=== PATIENT | female | born 1980 | race Caucasian/White ===

== ENCOUNTER 2019-02-05 16:17 | Inpatient (IN) ==
[2019-02-05] MEDS ORDERED: cefTRIAXone SODIUM 1,000 MG/50 ML BAG IV STA (16:36)
[2019-02-05] MEDS ORDERED: SODIUM CHLORIDE 0.9% 1000ML 1,000 ML IV ONE (16:38)
[2019-02-05] MEDS ORDERED: KETOROLAC TROMETHAMINE 15 MG/ML VIAL IV ONE (16:38)
[2019-02-05 17:05] LABS: Basophils # (auto) 0.01 K/uL (0-0.2); Basophils % (auto) 0.1 %; Eosinophils # (auto) 0.13 K/uL (0-0.5); Eosinophils % (auto) 0.9 %; Hematocrit (blood only) 40.3 % (37-47); Hemoglobin 13.9 g/dL (12.0-16.0); Immature Granulocytes # (auto) 0.06 K/uL (0.00-0.02); Immature Granulocytes % (auto) 0.4 %; Lymphocytes # (auto) 1.66 K/uL (1.2-3.4); Mean Corpuscular Hgb Conc 34.5 g/dL (32-36); Mean Corpuscular Volume 92.6 fL (80-100); Monocytes # (auto) 0.83 K/uL (0.11-0.59); Monocytes % (auto) 5.5 %; Neutrophils # (auto) 12.43 K/uL (1.4-6.5); Neutrophils % (auto) 82.1 %; Platelet Count 325 K/uL (130-400); RDW Coefficient of Variation 12.1 % (11.5-14.5); RDW Standard Deviation 41.1 fL (36.4-46.3); Red Blood Count 4.35 M/uL (4.2-5.4); White Blood Count 15.12 K/uL (4.8-10.8)
--- NOTE | 2019-02-05 17:08 | XRay Report ---
XR chest 1V portable CLINICAL HISTORY: Sepsis COMPARISON STUDY: No previous studies for comparison. FINDINGS: The cardiac and mediastinal contours are normal. There is no evidence of focal pulmonary co nsolidation. There is no evidence of failure. No pleural effusions are visualized.[ IMPRESSION: No active disease in the chest. Electronically signed by: Rm Valenzuela M.D. 02/05/2019 5:06 PM
[2019-02-05 17:15] LABS: INR 1.1 (0.9-1.1); Partial Thromboplastin Ratio 0.9; Partial Thromboplastin Time 25.4 Seconds (21.0-31.0); Prothrombin Time 10.8 Seconds (9.0-12.0)
[2019-02-05 17:23] LABS: Albumin Level 3.8 gm/dl (3.4-5.0); BUN Creatinine Ratio 12.9 (10-20); Calcium 9.1 mg/dl (8.5-10.1); Creatinine Clr Calc Pharmacy 87.5 ml/min; Est GFR (African American) 108.4; Est GFR (Non-African American) 93.5; Potassium 3.1 mmol/L (3.5-5.1)
[2019-02-05 17:26] LABS: Albumin Globulin Ratio 0.8 (0.9-2); Bilirubin,Total 0.3 mg/dl (0.2-1); Globulin 4.5 gm/dl (2.5-4.0); Total Protein 8.3 gm/dl (6.4-8.2)
--- NOTE | 2019-02-05 17:55 | Ultrasound Report ---
US extremity nonvascular CLINICAL HISTORY: Painful wrist swelling. History of ganglion. Clinically suspected abscess. COMPARISON STUDY: No previous studies for comparison. FINDINGS: Within the palmar aspect of the wrist, there is a 1 cm complex irregular avascular hypoecho ic lesion. Avascular hypoechoic lesion. This corresponds the patient's area of clinical concern. In t he proper clinical setting this could represent an abscess IMPRESSION: Within the palmar aspect of the wrist in the area of clinical concern there is a 1 cm ir regularly marginated avascular hypoechoic lesion. In the proper clinical setting this could represent an abscess. Electronically signed by: Rm Valenzuela M.D. 02/05/2019 5:53 PM
[2019-02-05] MEDS ORDERED: PIPERACILL/TAZOBAC CONSULT ACTIVE PRN (18:32)
[2019-02-05] MEDS ORDERED: ACETAMINOPHEN 325 MG TAB PO PRN (18:37)
[2019-02-05] MEDS ORDERED: POTASSIUM CHLORIDE 20 MEQ TABCR PO STA (18:38)
[2019-02-05] MEDS ORDERED: VANCOMYCIN CONSULT ACTIVE PRN (18:39)
[2019-02-05] MEDS ORDERED: VANCOMYCIN HCL 1,500 MG in SODIUM CHLORIDE 0.9% 500 ML IV ONE (18:39)
[2019-02-05] MEDS ORDERED: HYDROmorphone INJ 0.5 MG/0.5 ML SYR IV PRN (18:39)
[2019-02-05] MEDS ORDERED: PIPERACILLIN/TAZOBACTAM 3.375 GM in DEXTROSE 5% 100 ML IV SCH (18:45)
[2019-02-05] MEDS ORDERED: LORazepam 0.5 MG TAB PO PRN (19:16)
[2019-02-05] MEDS ORDERED: PIPERACILLIN/TAZOBACTAM 3.375 GM in DEXTROSE 5% 100 ML IV ONE (20:00)
[2019-02-05] MEDS ORDERED: VANCOMYCIN HCL 1,750 MG in SODIUM CHLORIDE 0.9% 500 ML IV SCH (20:00)
--- NOTE | 2019-02-05 20:01 | Emergency Department Note ---
Entered by Halley Benton acting as a scribe for History of Present Illness General Chief complaint: Hand Injury/Pain Stated complaint: HAND INFECTION - LEFT Source: patient History of Present Illness Onset (ago): day(s) 2 Location: left (hand) Pain Consistency: + other (worsening) Maximum Pain Intensity: 6 Quality: + other (left hand infection) Associated symptoms: + other (Positive pain and inflammation, occasional drainage, fever, abdominal pain. Negative runny nose. 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 She states her symptoms began with pain and inflammation in her left hand so she went to the [facility]. She states the doctor applied topical lidocaine and tried to IND her ganglion cyst with no success. She then went to the [facility] and was given an IV antibiotic, Vancomycin, Rocephin and was discharged with Keflex. Today, she has increased inflammation in her left hand with associated pain. Pt notes her fever and abdominal pain also began today but she denies any runny nose, cough, SOB, chest pain, nausea, vomiting. She notes her ganglion cyst has occasional drainage. Home Medications Home Medications Medication Instructions Recorded Confirmed Type furosemide [Lasix] 40 mg PO DAILY PRN 08/27/18 02/05/19 History lorazepam 0.5 mg PO DAILY PRN 08/27/18 02/05/19 History potassium chloride 10 meq PO DAILY PRN 08/27/18 02/05/19 History ranitidine HCl [Zantac] 300 mg PO HS 08/27/18 02/05/19 History trazodone 50 mg PO HS PRN 08/27/18 02/05/19 History venlafaxine [Effexor XR] 37.5 mg PO QPM 08/27/18 02/05/19 History tramadol 50 mg PO Q6H PRN #30 tab 09/07/18 02/05/19 Rx cephalexin 500 mg PO TID 02/05/19 02/05/19 History diclofenac sodium 75 mg PO Q6H PRN 02/05/19 02/05/19 History ketorolac 10 mg PO Q6 PRN 02/05/19 02/05/19 History Allergies Allergy/AdvReac Type Severity Reaction Status Date / Time clavulanic acid Allergy Severe Hives Verified 02/05/19 16:48 [From Augmentin] Past Med/Surg History Medical History Acid reflux Anxiety Depression Factor 5 Leiden mutation, heterozygous Hx of endometritis Swelling LOWER EXTREMITIES/CARDIO TEST...NO FINDINGS...TESTING DONE AND NEGATIVE FOR BLOOD CLOTS Surgical History Hx of laparoscopy Hx of wisdom tooth extraction Family History Grandfather Family history of diabetes mellitus Social History Preferred Language: Gibraltarian Communication Ability: Effective Beliefs That Will Affect Care: None Current Living Situation: Family Feels Safe at Home: Yes Smoking Status: Current every day smoker Tobacco Type: cigarettes Cigarettes Per Day: 4-5 CIGS /DAY Hx Alcohol Use: Yes Alcohol type: beer Hx Substance Use: No Review of Systems See HPI for pertinent positives & negatives. and A total of 10 systems reviewed and were otherwise negative Physical Exam Vital Signs Vital Signs - 24 hr 02/05/19 16:22 02/05/19 18:58 02/05/19 19:27 Temperature 37.8 C H 36.8 C Temperature Source Oral Oral Sepsis Recent Fever Within 48 Hours No Sepsis Action Taken by Nursing No Action Required Pulse Rate 119 H Pulse Rate [Right Finger] 86 89 Respiratory Rate 16 18 18 Respiratory Effort / Characteristics Non-Labored Respiratory Depth Normal Respiratory Pattern Regular Blood Pressure 123/85 Blood Pressure [Left Arm] 122/80 Blood Pressure [Right Arm] 101/67 Blood Pressure Mean 97 Blood Pressure Mean [Left Arm] 94 Blood Pressure Mean [Right Arm] 78 Blood Pressure Position Sitting Blood Pressure Position [Left Arm] Lying Pulse Oximetry 97 98 97 Oxygen Delivery Method Room Air Room Air Room Air GENERAL: Sitting up in bed, alert, well appearing, well nourished, no distress, non-toxic EYE EXAM: normal conjunctiva. OROPHARYNX: no exudate, no erythema, lips, buccal mucosa, and tongue normal and mucous membranes are moist NECK: supple, no nuchal rigidity, no adenopathy, non-tender LUNGS: Clear to auscultation. Normal chest wall mechanics HEART: no murmurs, S1 normal and S2 normal ABDOMEN: abdomen soft, non-tender, normo-active bowel, sounds, no masses, no rebound or guarding. BACK: Back is symmetrical on inspection and there is no deformity, no midline tenderness, no CVA tenderness. SKIN: no rashes and no bruising UPPER EXTREMITIES: Firm collection at the left distal radius palmar surface with an incision sun. Surrounding erythema, tracking to dorsal surface of hand/MCPs along with anterior and posterior forearm. Mild Pain with extension of digits LOWER EXTREMITIES: No pitting edema. NEURO EXAM: Normal sensorium, cranial nerves II-XII grossly intact, normal speech, no gross weakness of arms, no gross weakness of legs. Course ED COURSE: Vital signs were reviewed and showed normotensive The patients medical record was reviewed The above diagnostic studies were performed and reviewed. ED treatments and interventions as stated above. 1631: The patient was evaluated in room A12. A complete history and physical examination was performed. 1804: I reviewed the patient's case [facility] the [facility] for further management. 1820: Upon reevaluation, the patient is feeling slightly better. I discussed my findings with the patient and she understands and agrees with the treatment plan. Based on the patients age, coexisting illnesses, exam and lab findings the decision to treat as an inpatient was made. The patient remained stable while under my care. The patient will be evaluated for further management. Administered Medications Discontinued Medications Ceftriaxone Sodium (Rocephin) 1,000 mg in 50 mls @ 100 mls/hr IV NOW STA Stop: 02/05/19 17:05 Last Infusion: 02/05/19 18:37 Dose: 0 mls/hr Documented by: [id number] Infusion: 02/05/19 17:15 Dose: 100 mls/hr Documented by: [id number] Infusion: 02/05/19 17:00 Dose: 0 mls/hr Documented by: [id number] Admin: 02/05/19 17:00 Dose: 100 mls/hr Documented by: [id number] Sodium Chloride (Nss 1000ml) 1,000 mls @ 999 mls/hr IV .Q1H1M ONE Stop: 02/05/19 17:38 Last Infusion: 02/05/19 18:39 Dose: 0 mls/hr Documented by: [id number] Admin: 02/05/19 17:00 Dose: 999 mls/hr Documented by: [id number] Ketorolac Tromethamine (Toradol) 10 mg IV NOW ONE Stop: 02/05/19 16:39 Last Admin: 02/05/19 16:59 Dose: 10 mg Documented by: [id number] Medical Decision Making Differential Diagnosis Differential diagnosis includees etiologies such as cellulitis, abscess, MRSA infection, DVT, necrotizing fasciitis, dermatitis, drug eruption, as well as others were entertained. Home Medications Current Medication List: was personally reviewed by me Laboratory Data Attestation: I reviewed the patient's lab results. Result diagrams: 02/05/19 16:56 02/05/19 16:56 Lab Results 02/05/19 02/05/19 02/05/19 Range/Units 16:56 16:56 16:56 WBC 15.12 H (4.8-10.8) K/uL RBC 4.35 (4.2-5.4) M/uL Hgb 13.9 (12.0-16.0) g/dL Hct 40.3 (37-47) % MCV 92.6 (80-100) fL MCH 32.0 (25-34) pg MCHC 34.5 (32-36) g/dL RDW Std Deviation 41.1 (36.4-46.3) fL RDW Coeff of Saturnino 12.1 (11.5-14.5) % Plt Count 325 (130-400) K/uL MPV 9.0 (7.4-10.4) fL Immature Gran % (Auto) 0.4 % Neut % (Auto) 82.1 % Lymph % (Auto) 11.0 % Parke % (Auto) 5.5 % Eos % (Auto) 0.9 % Baso % (Auto) 0.1 % Immature Gran # (Auto) 0.06 H (0.00-0.02) K/uL Neut # (Auto) 12.43 H (1.4-6.5) K/uL Lymph # (Auto) 1.66 (1.2-3.4) K/uL Parke # (Auto) 0.83 H (0.11-0.59) K/uL Eos # (Auto) 0.13 (0-0.5) K/uL Baso # (Auto) 0.01 (0-0.2) K/uL PT 10.8 (9.0-12.0) Seconds INR 1.1 (0.9-1.1) APTT 25.4 (21.0-31.0) Seconds PTT Ratio 0.9 Sodium 138 (136-145) mmol/L Potassium 3.1 L (3.5-5.1) mmol/L Chloride 104 (98-107) mmol/L Carbon Dioxide 31 (21-32) mmol/L Anion Gap 3.0 (3-11) BUN 10 (7-18) mg/dl Creatinine 0.80 (0.6-1.2) mg/dl Est Cr Clr Drug Dosing 87.5 ml/min Est GFR ( Amer) 108.4 Est GFR (Non-Af Amer) 93.5 BUN/Creatinine Ratio 12.9 (10-20) Glucose 101 H (70-99) mg/dl Lactate (0.4-2.0) mmol/L Calcium 9.1 (8.5-10.1) mg/dl Total Bilirubin 0.3 (0.2-1) mg/dl AST 18 (15-37) U/L ALT 27 (12-78) U/L Alkaline Phosphatase 100 (45-117) U/L Total Protein 8.3 H (6.4-8.2) gm/dl Albumin 3.8 (3.4-5.0) gm/dl Globulin 4.5 H (2.5-4.0) gm/dl Albumin/Globulin Ratio 0.8 L (0.9-2) 02/05/19 Range/Units 16:56 WBC (4.8-10.8) K/uL RBC (4.2-5.4) M/uL Hgb (12.0-16.0) g/dL Hct (37-47) % MCV (80-100) fL MCH (25-34) pg MCHC (32-36) g/dL RDW Std Deviation (36.4-46.3) fL RDW Coeff of Saturnino (11.5-14.5) % Plt Count (130-400) K/uL MPV (7.4-10.4) fL Immature Gran % (Auto) % Neut % (Auto) % Lymph % (Auto) % Parke % (Auto) % Eos % (Auto) % Baso % (Auto) % Immature Gran # (Auto) (0.00-0.02) K/uL Neut # (Auto) (1.4-6.5) K/uL Lymph # (Auto) (1.2-3.4) K/uL Parke # (Auto) (0.11-0.59) K/uL Eos # (Auto) (0-0.5) K/uL Baso # (Auto) (0-0.2) K/uL PT (9.0-12.0) Seconds INR (0.9-1.1) APTT (21.0-31.0) Seconds PTT Ratio Sodium (136-145) mmol/L Potassium (3.5-5.1) mmol/L Chloride (98-107) mmol/L Carbon Dioxide (21-32) mmol/L Anion Gap (3-11) BUN (7-18) mg/dl Creatinine (0.6-1.2) mg/dl Est Cr Clr Drug Dosing ml/min Est GFR ( Amer) Est GFR (Non-Af Amer) BUN/Creatinine Ratio (10-20) Glucose (70-99) mg/dl Lactate 1.2 (0.4-2.0) mmol/L Calcium (8.5-10.1) mg/dl Total Bilirubin (0.2-1) mg/dl AST (15-37) U/L ALT (12-78) U/L Alkaline Phosphatase (45-117) U/L Total Protein (6.4-8.2) gm/dl Albumin (3.4-5.0) gm/dl Globulin (2.5-4.0) gm/dl Albumin/Globulin Ratio (0.9-2) Imaging Data Radiologist's Impression: Radiology results as stated below per my review and the radiologist's interpretation: XR chest 1V portable CLINICAL HISTORY: Sepsis COMPARISON STUDY: No previous studies for comparison. FINDINGS: The cardiac and mediastinal contours are normal. There is no evidence of focal pulmonary consolidation. There is no evidence of failure. No pleural effusions are visualized.[ IMPRESSION: No active disease in the chest. Electronically signed by: Rm Valenzuela M.D. 02/05/2019 5:06 PM US extremity nonvascular CLINICAL HISTORY: Painful wrist swelling. History of ganglion. Clinically suspected abscess. COMPARISON STUDY: No previous studies for comparison. FINDINGS: Within the palmar aspect of the wrist, there is a 1 cm complex irregular avascular hypoechoic lesion. Avascular hypoechoic lesion. This corresponds the patient's area of clinical concern. In the proper clinical setting this could represent an abscess IMPRESSION: Within the palmar aspect of the wrist in the area of clinical concern there is a 1 cm irregularly marginated avascular hypoechoic lesion. In the proper clinical setting this could represent an abscess. Electronically signed by: Rm Valenzuela M.D. 02/05/2019 5:53 PM ECG Data Attestation: I personally reviewed and interpreted this ECG as follows: Indication: other (cellulitis) Rate (beats per minute): 97 Rhythm: sinus rhythm Findings: + other (normal axis); no PVC Blood Pressure Blood Pressure Findings: Normal blood pressure Blood Pressure Disposition: did not require urgent referral MDM Narrative Patient is a 38-year-old female who presents the ER for erythema surrounding a left radial collection. Patient has significant surrounding erythema and is febrile and tachycardic. Labs show a leukocytosis of 15,000. No significant anemia. INR is unremarkable. BMP with mild hypokalemia. LFTs bilirubin was unremarkable. Patient was given IV Rocephin. Patient was updated bedside. Ultrasound forms of fluid collection and I did not I&D this as it was previously attempted and patient has a known cyst present here. Patient family updated bedside. Discussed with the hospitalist. Patient was admitted for further workup. Impression & Plan Cellulitis Discharge Plan Visit Data *Final* Discharge Date/Time: 02/05/19 19:05 Chief Complaint: Hand Injury/Pain Stated Complaint: HAND INFECTION - LEFT ED Provider: Waldo Varma Discharge Problem: Cellulitis Patient Disposition: Admitted As Inpatient Discharge Instructions Interventions: ED Discharge Assessment Last Done: 02/05/19 19:05 Discharge Problem: Cellulitis Qualifiers: Site of cellulitis: extremity Site of cellulitis of extremity: upper extremity Laterality: left Qualified Code(s): L03.114 - Cellulitis of left upper limb The scribe's documentation has been prepared under my direction and personally reviewed by me in its entirety. I confirm that the note above accurately reflects all work, treatment, procedures, and medical decision making performed by me.
--- NOTE | 2019-02-05 20:01 | History & Physical Report ---
Date of Service February 05, 2019 Assessment & Plan (1) Cellulitis: Left upper extremity cellulitis Possible abscess -erythema and swelling of left hand to left wrist to distal third of radius and ulna; limited range of motion of left wrist -symptoms initially started on 02/03/19 without trauma or animal bites for which patient went to hospital in [facility] where she received a dose of ceftrixone and Vancomycin and then discharged with Keflex, patient took Keflex and noted erythema and swelling to have worsened and came to [facility] on 02/05/19 -received ceftriaxone in the ED on 02/05/19 -upgrade antibiotics to Zosyn and Vancomycin and await admission blood cultures -give IV fluids, pain medicatons and bowel regimen to prevent constipation -admission Ultrasound: Within the palmar aspect of the wrist in the area of clinical concern there is a 1 cm irregularly marginated avascular hypoechoic lesion. In the proper clinical setting this could represent an abscess -seek orthopedic consultation, NPO after midnight Initial Tachycardia -secondary to pain -give pain medications for left upper extremity as needed Mood disorder -continue home dose Effexor, Trazadone, ativan Tobacco use -declines nicotine substitutes at this time History of venous stasis -denies cardiac problems -but at home may take prn Lasix and potassium for leg swelling -no leg swelling at this time, hold diuretics DVT ppx: SCDs Full Code Robbie [phone] History of Present Illness 38 year old female with erythema and swelling of left hand to left wrist to distal third of radius and ulna. symptoms initially started on 02/03/19 without t rauma or animal bites for which patient went to hospital in [facility] where she received a dose of ceftrixone and Vancomycin and then discharged with Keflex, patient took Keflex and noted erythema and swelling to have worsened and came to [facility] on 02/05/19 received ceftriaxone in the ED on 02/05/19 range of motion of extension and flexion of the left wrist limited by swelling patient denies recent trauma to left hand. no animal bites. had chills at home. 1 episode of vomiting. no abdomen pain. no shortness of breath. no chest pain. no changes in urination or bowel movements. denies intravenous drug use. reports she has smoking tobacco history but no recent cravings to smoke. Primary Care Provider: Mary Velazquez PA-C Allergies Allergy/AdvReac Type Severity Reaction Status Date / Time clavulanic acid Allergy Severe Hives Verified 02/05/19 16:48 [From Augmentin] Home Medications Home Medications Medication Instructions Recorded Confirmed Type furosemide [Lasix] 40 mg PO DAILY PRN 08/27/18 02/05/19 History lorazepam 0.5 mg PO DAILY PRN 08/27/18 02/05/19 History potassium chloride 10 meq PO DAILY PRN 08/27/18 02/05/19 History ranitidine HCl [Zantac] 300 mg PO HS 08/27/18 02/05/19 History trazodone 50 mg PO HS PRN 08/27/18 02/05/19 History venlafaxine [Effexor XR] 37.5 mg PO QPM 08/27/18 02/05/19 History tramadol 50 mg PO Q6H PRN #30 tab 09/07/18 02/05/19 Rx cephalexin 500 mg PO TID 02/05/19 02/05/19 History diclofenac sodium 75 mg PO Q6H PRN 02/05/19 02/05/19 History ketorolac 10 mg PO Q6 PRN 02/05/19 02/05/19 History Past Med/Surg History Medical History Acid reflux Anxiety Depression Factor 5 Leiden mutation, heterozygous Hx of endometritis Swelling LOWER EXTREMITIES/CARDIO TEST...NO FINDINGS...TESTING DONE AND NEGATIVE FOR BLOOD CLOTS Surgical History Hx of laparoscopy Hx of wisdom tooth extraction Family History Grandfather Family history of diabetes mellitus Social History Preferred Language: Greenlandic Communication Ability: Effective Beliefs That Will Affect Care: None Current Living Situation: Family Feels Safe at Home: Yes Smoking Status: Current every day smoker Tobacco Type: cigarettes Cigarettes Per Day: 4-5 CIGS /DAY Hx Alcohol Use: Yes Alcohol type: beer Hx Substance Use: No Review of Systems Review of Systems: All systems reviewed & are unremarkable except as noted in HPI & below Physical Exam Constitutional: WD/WN, vitals as above Eyes: PERRL, conjunctivae normal, anicteric sclerae EOM intact bilaterally ENMT: external ear and nose normal, oropharynx normal Neck: trachea midline, no thyromegaly normal visual inspection Respiratory: normal respiratory effort, lungs clear to auscultation Cardiovascular: RRR, no murmur, no edema Gastrointestinal (Abdomen): normal bowel sounds, soft, nontender, no hepatosplenomegaly Musculoskeletal: Extremities: + limited ROM of upper extremity (limited ROM of left wrist) Left and + wrist abnormality (erythema swelling of left hand to left wrist to distal third of radius/ulna) Neurologic: PERRL, EOMI, accommodation nl, no face palsy, no dysarthria CN's II-XI intact bilaterally Psychiatric: A+Ox3, euthymic affect Results & Data Vital Signs (Past 12 Hours) Vital Signs Temp Pulse Pulse Resp BP BP BP 02/05/19 19:27 36.8 C 89 18 122/80 02/05/19 18:58 86 18 101/67 02/05/19 16:22 37.8 C H 119 H 16 123/85 Pulse Ox 02/05/19 19:27 97 02/05/19 18:58 98 02/05/19 16:22 97 (1) Cellulitis Laterality: left Site of cellulitis: extremity Site of cellulitis of extremity: upper extremity Qualified Code(s): L03.114 - Cellulitis of left upper limb
[2019-02-05] MEDS ORDERED: POLYETHYLENE (MIRALAX) 17 GM PACK PO PRN (20:14)
[2019-02-05] MEDS: SODIUM CHLORIDE 0.9% 1000ML 1,000 ML IV SCH (20:20)
[2019-02-05] MEDS ORDERED: GADOBUTROL 7.5ML VIAL IV PRN (21:10)
[2019-02-05] MEDS: VENLAFAXINE HCL XR 37.5 MG CAPXR PO SCH (22:18)
--- NOTE | 2019-02-05 22:19 | XRay Report ---
XR wrist LT min 3V routine CLINICAL HISTORY: Left wrist pain COMPARISON: None. DISCUSSION: There is soft tissue swelling on the radial aspect of the radial carpal joint. There are no acute fractures. There are no destructive lesions. There is mild ulnar minus variance IMPRESSION: 1. Soft tissue swelling of the radial side 2. No acute fractures 2. No destructive lesions are visualized Electronically signed by: Rm Valenzuela M.D. 02/05/2019 10:17 PM
--- NOTE | 2019-02-05 22:19 | Magnetic Resonance Report ---
MR wrist LT wo/w con CLINICAL HISTORY: Left wrist pain. Infection. COMPARISON STUDY: August 20, 2018 FINDINGS: Imaging was performed in the axial sagittal and coronal planes. Imaging was performed befor e and after the administration of 7 cc of intravenous Gadavist. There are no areas of marrow edema to indicate occult fracture. There is a stable bone island within the capitate. There is a small joint effusion involving the wrist. There is diffuse soft tissue edema, most pronounced on the radial side. There is fluid within the carpal tunnel, and within multiple flexor tendon sheaths consistent with a tenosynovitis. There is multifocal synovial enhancement. At the site of the previous identified gangl ion, there is an ill-defined T2 bright 11 mm partially cystic mass demonstrating surrounding rim enha ncement. This is contiguous with a 15 mm T2 bright lesion extending over the volar aspect of the radi ocarpal joint. Given the clinical history this could represent an infected ganglion which has rupture d. IMPRESSION: 1. Diffuse soft tissue edema, most pronounced on the radial side. The findings are suggestive of a ce llulitis 2. Small joint effusion 3. Interval development of fluid within the carpal tunnel as well as fluid within multiple flexor ten don sheaths consistent with a tenosynovitis 4. Diffuse synovial enhancement, a septic joint cannot be excluded 5. No evidence of pathologic marrow edema 6. The previously described radial aspect ganglion, is more ill-defined on the current study with pro nounced surrounding enhancement. This is contiguous with a rim-enhancing 15 mm T2 bright lesion exten ding over the volar aspect of the radiocarpal joint. Given the clinical history, this could represent an infected ganglia which has ruptured Electronically signed by: Rm Valenzuela M.D. 02/05/2019 10:16 PM
[2019-02-06] MEDS: KETOROLAC TROMETHAMINE 15 MG/ML VIAL IV PRN ×3 (00:03→18:52)
[2019-02-06] MEDS: TRAZODONE HCL 50 MG TAB PO PRN (00:17)
[2019-02-06] MEDS: PIPERACILLIN/TAZOBACTAM 3.375 GM in DEXTROSE 5% 100 ML IV SCH ×3 (02:27→18:15)
[2019-02-06 05:50] LABS: Basophils # (auto) 0.01 K/uL (0-0.2); Basophils % (auto) 0.1 %; Eosinophils # (auto) 0.18 K/uL (0-0.5); Eosinophils % (auto) 1.5 %; Hematocrit (blood only) 32.2 % (37-47); Immature Granulocytes # (auto) 0.06 K/uL (0.00-0.02); Immature Granulocytes % (auto) 0.5 %; Lymphocytes # (auto) 2.42 K/uL (1.2-3.4); Mean Corpuscular Hgb Conc 34.2 g/dL (32-36); Mean Corpuscular Volume 90.4 fL (80-100); Mean Platelet Volume 8.8 fL (7.4-10.4); Monocytes # (auto) 0.84 K/uL (0.11-0.59); Monocytes % (auto) 6.9 %; Neutrophils # (auto) 8.61 K/uL (1.4-6.5); Platelet Count 234 K/uL (130-400); RDW Standard Deviation 39.9 fL (36.4-46.3); Red Blood Count 3.56 M/uL (4.2-5.4); White Blood Count 12.12 K/uL (4.8-10.8)
[2019-02-06 06:29] LABS: Albumin Globulin Ratio 0.8 (0.9-2); Albumin Level 2.6 gm/dl (3.4-5.0); BUN Creatinine Ratio 10.7 (10-20); Bilirubin,Total 0.3 mg/dl (0.2-1); Creatinine Clr Calc Pharmacy 114.7 ml/min; Est GFR (African American) 133.3; Globulin 3.4 gm/dl (2.5-4.0); Potassium 3.4 mmol/L (3.5-5.1)
[2019-02-06] MEDS ORDERED: POTASSIUM CHLORIDE 20 MEQ TABCR PO STA (07:41)
[2019-02-06] MEDS ORDERED: VANCOMYCIN HCL 1,000 MG in SODIUM CHLORIDE 0.9% 250 ML IV SCH (08:00)
--- NOTE | 2019-02-06 08:31 | Pharmacy Report ---
Pharmacy Abx Dose Short Note - Date of Service February 06, 2019 - Assessment & Plan Assessment Pharmacy consulted on 02/05/19 to dose vancomycin and zosyn for SST. Pt is a 38 year old F who failed outpatient keflex. Received a dose of vanc and rocephin at [facility] on 02/03 and discharged on keflex. Day # 2 of antimicrobial therapy. * Renal function at baseline. * Blood cultures pending * Estimated halflife ~7 hours based on [id number]/min Plan Vancomycin * Loading dose: 1750mg x 1 (24mg/kg) * Maintenance dose: 1000mg (14mg/kg) iv q 10 hours. * Goal trough level for SST : ~15 mcg/mL * Trough level ordered for: 02/07/19 @1330 Zosyn * 3.375gm x 1, then extended interval 3.375gm iv q8h Pharmacy will continue to follow and will adjust dose/frequency as necessary. Thank you.
[2019-02-06] MEDS: SENNA 8.6 MG TAB PO SCH (08:56)
[2019-02-06] MEDS: SODIUM CHLORIDE 0.9% 1000ML 1,000 ML IV SCH (10:29)
--- NOTE | 2019-02-06 10:45 | Hospitalist Progress Note ---
Date of Service February 06, 2019 Assessment & Plan (1) Cellulitis: Left upper extremity cellulitis Possible left wrist abscess -erythema and swelling of left hand to left wrist to distal third of radius and ulna; limited range of motion of left wrist -symptoms initially started on 02/03/19 without trauma or animal bites for which patient went to hospital in [facility] where she received a dose of ceftrixone and Vancomycin and then discharged with Keflex, patient took Keflex and noted erythema and swelling to have worsened and came to [facility] on 02/05/19 -received ceftriaxone in the ED on 02/05/19; upgraded antibiotics to Zosyn and Vancomycin -give IV fluids, pain medicatons and bowel regimen to prevent constipation -admission Ultrasound: Within the palmar aspect of the wrist in the area of clinical concern there is a 1 cm irregularly marginated avascular hypoechoic lesion. In the proper clinical setting this could represent an abscess -orthopedic physician placed left upper extremity in splint on 02/05/19 and that there is no need for surgery at this time; awaiting full orthopedic note and recommendation -the splint does impede physical exam on routine basis, have spoken with patient about keeping the splint to today and will re-assess if there is increased discomfort, continue Zosyn and Vancomycin and await admission blood cultures Initial Tachycardia -secondary to pain -give pain medications for left upper extremity as needed -heart rate is controlled Mood disorder -continue home dose Effexor, Trazadone, ativan Tobacco use -declines nicotine substitutes at this time History of venous stasis -denies cardiac problems -but at home may take prn Lasix and potassium for leg swelling -no leg swelling at this time, hold diuretics DVT ppx: SCDs Full Code Robbie [phone] Subjective patient seen and assessed after orthopedic doctor placed left hand in splint. patient reports initially splint made her arm feel better but some discomfort at this time. no fever. denies vomiting. no shortness of breath no chest pain Physical Exam Constitutional: WD/WN, vitals as above Eyes: PERRL, conjunctivae normal, anicteric sclerae EOM intact bilaterally ENMT: external ear and nose normal, oropharynx normal Neck: trachea midline, no thyromegaly normal visual inspection Respiratory: normal respiratory effort, lungs clear to auscultation Cardiovascular: RRR, no murmur, no edema Gastrointestinal (Abdomen): normal bowel sounds, soft, nontender, no hepatosplenomegaly Musculoskeletal: Extremities: + upper extremity abnormal to inspection (left upper extremity in splint) Neurologic: PERRL, EOMI, accommodation nl, no face palsy, no dysarthria CN's II-XI intact bilaterally Psychiatric: A+Ox3, euthymic affect Results & Data Vital Signs (Past 12 Hours) Vital Signs Temp Pulse Resp BP Pulse Ox 02/06/19 07:24 36.9 C 83 16 100/62 97 02/06/19 00:54 37.0 C 97 H 18 128/73 98 (1) Cellulitis Laterality: left Site of cellulitis: extremity Site of cellulitis of extremity: upper extremity Qualified Code(s): L03.114 - Cellulitis of left upper limb
--- NOTE | 2019-02-06 11:19 | Consultation Report ---
DATE OF CONSULTATION: 02/06/2019 ORTHOPEDIC CONSULTATION HISTORY OF PRESENT ILLNESS: Coverage consult, patient of Dr. Ivy, who is admitted for cellulitis of left upper extremity, who had a recent history of having an attempted ganglion excision that has recurred with intermittent drainage. She presented to [facility] originally and then presented here last evening with pain and redness of the wrist and forearm and some swelling of her hand. She denies any nausea, vomiting, felt like she had a low grade temperature. [place] a little chilly at times. She is presently feeling a little bit better. She received a dose of ceftriaxone and vancomycin and was discharged on Keflex from [facility] and then presented to the ER on 02/05/2019. ALLERGIES: INCLUDE CLAVULANIC ACID, GIVES HER HIVES. HOME MEDICATIONS: Include furosemide, lorazepam, potassium chloride, Zantac, trazodone, Effexor, tramadol, Keflex, diclofenac and ketorolac. PAST MEDICAL HISTORY: Remarkable for acid reflux, anxiety, depression, Leiden factor V mutation heterozygous, history of endometritis, intermittent swelling. PAST SURGICAL HISTORY: Remarkable for laparoscopy, wisdom tooth extraction. FAMILY HISTORY: Reveals that there is no history of diabetes mellitus. SOCIAL HISTORY: Reveals that she has children and is . She feels safe at home. She has a 19-year-old, who is in the [employer]. She smokes 4-5 cigarettes a day. She drinks beer. No other substance abuse. REVIEW OF SYSTEMS: Presently reveals no fever, chills, nausea, vomiting, headache. PERTINENT ORTHOPEDIC PHYSICAL EXAMINATION: Reveals no adenopathy supraclavicular, axillary or epitrochlear. There is some redness and swelling of the radial, dorsal and slightly palmar side of the hand. There is no crepitation in the subcutaneous tissues. Hand exam reveals no Knavel findings. The FDP and FDS and the FPL to the digits and the thumb produced no pain in the carpal canal. There is no pain with passive stretch into flexion or extension of the digits. Range of motion of the wrist produces no pain with range from position at rest to 10-15 degrees of extension to 20 degrees of flexion. Pronation and supination of the forearm is full. There is no pain at the wrist, no pain at the elbow. Again, there is no crepitation or any sign of subcutaneous air or any type of fasciitis based on physical examination. There is an old healed incision on the volar radial side over the distal aspect of the forearm and at the carpus. There is no obvious fluctuance. There is a freshly healed incision snu that was made by the physician at [facility] that did not account to any kind of drainage. X-RAYS: Multiple views of the wrist reveal a bony lesion. MRI scan reveal soft tissue enhancement only. There is no bony destruction in the region of the ganglion. There are no gross findings of any septic arthritis or any drainable areas. ASSESSMENT AND PLAN: Recurrent draining ganglion with likely secondary contamination from her expressing material over the last several months. At this point in time, she needs to be placed at rest in a splint. She needs to be continued with her IV antibiotics, needs to be continued to be observed for any potential surgical drainage lesions which are not readily apparent at this point in time. There is no gross evidence of any type of abscess, osteomyelitis or necrotizing fasciitis. Suggest continued present management as there is nothing that is culturable at this point in time, placed at rest in a splint. Options were discussed with her concerning for me to try to make another drainage incision today, but she declined as she felt like they did not get anything the first time and she was feeling slightly better, which is reasonable based on her clinical presentation at this point with no obvious source of any type of drainable material. She will continue with observation per hospitalist. We will sign off the case to Dr. Ivy since he has been following her for several months and she is freshly postop. MARLENE
[2019-02-06] MEDS: VANCOMYCIN HCL 1,000 MG in SODIUM CHLORIDE 0.9% 250 ML IV SCH (18:15)
[2019-02-06] MEDS: VENLAFAXINE HCL XR 37.5 MG CAPXR PO SCH (21:00)
[2019-02-07] MEDS: TRAZODONE HCL 50 MG TAB PO PRN (00:09)
[2019-02-07] MEDS: PIPERACILLIN/TAZOBACTAM 3.375 GM in DEXTROSE 5% 100 ML IV SCH ×2 (02:13→10:16)
[2019-02-07] MEDS: VANCOMYCIN HCL 1,000 MG in SODIUM CHLORIDE 0.9% 250 ML IV SCH (04:20)
[2019-02-07] MEDS: KETOROLAC TROMETHAMINE 15 MG/ML VIAL IV PRN (05:58)
[2019-02-07 06:24] LABS: Basophils # (auto) 0.01 K/uL (0-0.2); Basophils % (auto) 0.1 %; Eosinophils # (auto) 0.23 K/uL (0-0.5); Eosinophils % (auto) 2.6 %; Hematocrit (blood only) 29.3 % (37-47); Immature Granulocytes # (auto) 0.02 K/uL (0.00-0.02); Immature Granulocytes % (auto) 0.2 %; Lymphocytes # (auto) 2.22 K/uL (1.2-3.4); Lymphocytes % (auto) 24.7 %; Mean Corpuscular Hgb Conc 34.1 g/dL (32-36); Mean Corpuscular Volume 90.4 fL (80-100); Mean Platelet Volume 8.9 fL (7.4-10.4); Monocytes # (auto) 0.51 K/uL (0.11-0.59); Monocytes % (auto) 5.7 %; Neutrophils % (auto) 66.7 %; Platelet Count 261 K/uL (130-400); RDW Coefficient of Variation 11.8 % (11.5-14.5); RDW Standard Deviation 39.2 fL (36.4-46.3); Red Blood Count 3.24 M/uL (4.2-5.4); White Blood Count 8.99 K/uL (4.8-10.8)
[2019-02-07 06:41] LABS: BUN Creatinine Ratio 13.1 (10-20); Calcium 8.4 mg/dl (8.5-10.1); Creatinine Clr Calc Pharmacy 120.7 ml/min; Est GFR (African American) 135.5; Est GFR (Non-African American) 116.9; Potassium 3.7 mmol/L (3.5-5.1)
--- NOTE | 2019-02-07 07:26 | Progress Note ---
DATE: 02/07/2019 SUBJECTIVE: Did well overnight. Notes that she has much less pain and much less pressure. She states she still feels some pressure in the region of the volar ganglion cyst, but noticed much less. She denies any chest pain, shortness of breath, fever, chills, nausea, vomiting or headache. OBJECTIVE: Vital signs are stable. She is afebrile. Neurovascular check reveals median and radial nerve functioning normal. Elbow full range of motion, shoulder full range of motion. There is no proximal streaking as expected and swelling. No major issues. ASSESSMENT: Cellulitis, left upper extremity, volar carpal ganglion, history of recent surgery by Dr. Ivy. At this point in time, we will transfer case back to him, was covering for the weekend. Of note is that her white count has decreased from 12.5 to 8.9. Improved with present treatment plan. At this point in time, remains to be seen whether or not ultimate reexcision and/or drainage would be required. However, clinical progression at this point in time makes that not an emergent situation presently.
[2019-02-07] MEDS ORDERED: VANCOMYCIN TROUGH ONE ×2 (07:30→13:30)
[2019-02-07] MEDS: SENNA 8.6 MG TAB PO SCH (09:03)
--- NOTE | 2019-02-07 10:37 | Progress Note ---
DATE: 02/07/2019 SUBJECTIVE: The patient is alert, sitting up in bed today, doing much better after starting IV antibiotics. She has been under the care of the hospitalist and Dr. Dasilva over the weekend. She came in with cellulitis in her left wrist. She seemed to be doing much better, but the swelling is down, pain is down, discomfort is down. OBJECTIVE: She is afebrile. Vital are stable. I took the dressing off. She had marked cellulitis on her arm and it is significantly decreased, almost completely gone now. She does have a small mass on the volar aspect of the left radial part of her wrist from a prior ganglion cyst incision, pseudocyst. No active drainage at this time. Her white count has dropped from 12.5 to 8.9. Neurovascular status intact. IMPRESSION: She is status post cellulitis, left wrist with a prior history of attempted removal of ganglion/pseudocyst of the radial artery and volar radial aspect, left wrist. PLAN: She is much improved. I think what we can do now is we want to make some decisions about what antibiotics to discharge her on from a p.o. standpoint. I had a long discussion with her back when this originally happened. She had to undergo carpal tunnel release and then removal of the ganglion cyst, though we got into remove the cyst, it was part of the radial artery where the one wall was like in part of the ganglion cyst. At that time, I did not feel I would be able to remove it safely and we debulked the area around it and then let it heal. Prior to this, she had actually took a little knife and tried to drain the cyst herself. I think what happened is that the artery and cyst would have glued together with a common wall and this is situation we are dealing with now. I am going to recommend we have her see a hand surgeon and/or vascular surgeon because this is going to be lot more difficult to take care. We will go ahead and get this cellulitis treated, calm down and then we will make that referral as she is in agreement with this treatment options. Doxycycline 100mg BID and Bactrim DS BID has been eprescribed to her pharmacy in [place]. I have spoke with Dr Nathaniel Munguia the hospitalist and updated him on our recommendations. MARLENE
--- NOTE | 2019-02-07 12:19 | Hospitalist Progress Note ---
Date of Service February 07, 2019 Assessment & Plan (1) Cellulitis: Left upper extremity cellulitis Possible left wrist abscess -erythema and swelling of left hand to left wrist to distal third of radius and ulna; limited range of motion of left wrist on admission -symptoms initially started on 02/03/19 without trauma or animal bites for which patient went to hospital in [facility] where she received a dose of ceftrixone and Vancomycin and then discharged with Keflex, patient took Keflex and noted erythema and swelling to have worsened and came to [facility] on 02/05/19 -received ceftriaxone in the ED on 02/05/19; upgraded antibiotics to Zosyn and Vancomycin -give IV fluids, pain medicatons and bowel regimen to prevent constipation -admission Ultrasound: Within the palmar aspect of the wrist in the area of clinical concern there is a 1 cm irregularly marginated avascular hypoechoic lesion. In the proper clinical setting this could represent an abscess -orthopedic physician placed left upper extremity in splint on 02/06/19 -02/07/19 admission blood cultures have returned as no growth to date Orthopedics took the dressing off and almost complete resolution of erythema, have a small mass on the volar aspect of the left radial part of her wrist from a prior ganglion cyst incision, Orthopedics recommended to stop the Vancomycin and Zosyn and discharge to home on Doxycycline and Bactrim Doxycycline 100mg BID and Bactrim DS BID (both duration of 21 days) has been eprescribed to her pharmacy in [place] by orthopedic Dr. Ivy Patient has follow up appointment with orthopedic Dr. Ivy on Thursday02/09/19 for further evaluation of left wrist and possible surgery in the future Patient given orthopedic instructions Initial Tachycardia on admission -secondary to pain -was givem pain medications for left upper extremity during hospital stay -heart rate is controlled Mood disorder -continue home dose Effexor, Trazadone, ativan Tobacco use -declines nicotine substitutes at this time History of venous stasis -denies cardiac problems -but at home may take prn Lasix and potassium for leg swelling -no leg swelling at this time, hold diuretics Main Discharge Diagnosis Cellulitis of left upper extremity, abscess of left wrist Discharge to Home Doxycycline 100mg BID and Bactrim DS BID (both duration of 21 days) has been eprescribed to her pharmacy in [place] by orthopedic Dr. Ivy Patient has follow up appointment with orthopedic Dr. Ivy on Thursday02/09/19 for further evaluation of left wrist and possible surgery in the future Primary Care follow up 02/14/2019 1:30 PM Provider Mary Velazquez PA-C Department [facility] Instructions MEDICATIONS: * Resume previous medications unless instructed otherwise by your surgeon. * Always take pain medication on a full stomach or with food to avoid upset stomach. * Do not drink alcohol or drive while taking narcotics. * Ibuprofen or Tylenol may be taken if narcotic not needed. SPECIAL CARE INSTRUCTIONS: __ None _x_ Keep extremity elevated and iced x 48 hours; apply ice 20-30 minutes 8-10 times/day. May remove at night. __ Sling __24 hrs/day __ Remove at night __ Shoulder Immobilizer __ 24 hrs/day __ Remove at night __ Dressing _x_ Maintain until seen in office, may shower with plastic over site __ Remove dressings in 24-48 hours and then may shower __ Cover incisions with band-aids after showering __ Do not remove steri-strips Call physician if chills or temperature rises above 102 degrees or pain unrelieved by prescribed pain medications at . . Subjective Orthopedics took the dressing off and almost complete resolution of erythema, have a small mass on the volar aspect of the left radial part of her wrist from a prior ganglion cyst incision, Orthopedics recommended to stop the Vancomycin and Zosyn and discharge to home on Doxycycline and Bactrim Doxycycline 100mg BID and Bactrim DS BID (both duration of 21 days) has been eprescribed to her pharmacy in [place] by orthopedic Dr. Ivy Patient has follow up appointment with orthopedic Dr. Ivy on Thursday02/09/19 for further evaluation of left wrist and possible surgery in the future Patient given orthopedic instructions Patient very pleasant that cellulitis is almost resolved. Denies acute pain of the wrist, no chest pain, no shortness of breath, no vomiting, no dizziness, no lightheadedness, no fever Physical Exam Constitutional: WD/WN, vitals as above Eyes: PERRL, conjunctivae normal, anicteric sclerae EOM intact bilaterally ENMT: external ear and nose normal, oropharynx normal Neck: trachea midline, no thyromegaly normal visual inspection Respiratory: normal respiratory effort, lungs clear to auscultation Cardiovascular: RRR, no murmur, no edema Gastrointestinal (Abdomen): normal bowel sounds, soft, nontender, no hepatosplenomegaly Musculoskeletal: Extremities: + upper extremity abnormal to inspection (left upper extremity splint, erythema/swelling almost resolved of left arm) Neurologic: PERRL, EOMI, accommodation nl, no face palsy, no dysarthria CN's II-XI intact bilaterally Psychiatric: A+Ox3, euthymic affect Results & Data Vital Signs (Past 12 Hours) Vital Signs Temp Pulse Resp BP Pulse Ox 02/07/19 07:13 37 C 69 18 108/67 94 02/07/19 07:12 37 C 69 18 108/67 94 02/07/19 07:10 37 C 69 18 108/67 94 (1) Cellulitis Laterality: left Site of cellulitis: extremity Site of cellulitis of extremity: upper extremity Qualified Code(s): L03.114 - Cellulitis of left upper limb
--- NOTE | 2019-02-07 12:28 | Discharge Summary ---
Date of Service February 07, 2019 Admission HPI Per Admitting Provider 38 year old female with erythema and swelling of left hand to left wrist to distal third of radius and ulna. symptoms initially started on 02/03/19 without trauma or animal bites for which patient went to hospital in [facility] where she received a dose of ceftrixone and Vancomycin and then discharged with Keflex, patient took Keflex and noted erythema and swelling to have worsened and came to [facility] on 02/05/19 received ceftriaxone in the ED on 02/05/19 range of motion of extension and flexion of the left wrist limited by swelling patient denies recent trauma to left hand. no animal bites. had chills at home. 1 episode of vomiting. no abdomen pain. no shortness of breath. no chest pain. no changes in urination or bowel movements. denies intravenous drug use. reports she has smoking tobacco history but no recent cravings to smoke. Admission Exam Per Admitting Provider Constitutional: WD/WN, vitals as above Eyes: PERRL, conjunctivae normal, anicteric sclerae EOM intact bilaterally ENMT: external ear and nose normal, oropharynx normal Neck: trachea midline, no thyromegaly normal visual inspection Respiratory: normal respiratory effort, lungs clear to auscultation Cardiovascular: RRR, no murmur, no edema Gastrointestinal (Abdomen): normal bowel sounds, soft, nontender, no hepatosplenomegaly Musculoskeletal: Extremities: + limited ROM of upper extremity (limited ROM of left wrist) Left and + wrist abnormality (erythema swelling of left hand to left wrist to distal third of radius/ulna) Neurologic: PERRL, EOMI, accommodation nl, no face palsy, no dysarthria CN's II-XI intact bilaterally Psychiatric: A+Ox3, euthymic affect Principal Diagnosis Cellulitis of left upper extremity, abscess of left wrist Discharge Exam Constitutional WD/WN, vitals as above Eyes PERRL, conjunctivae normal, anicteric sclerae EOM intact bilaterally ENMT external ear and nose normal, oropharynx normal Neck trachea midline, no thyromegaly normal visual inspection Respiratory normal respiratory effort, lungs clear to auscultation Cardiovascular RRR, no murmur, no edema Gastrointestinal (Abdomen) normal bowel sounds, soft, nontender, no hepatosplenomegaly Musculoskeletal Extremities: + upper extremity abnormal to inspection (left upper extremity splint, erythema/swelling almost resolved of left arm) Neurologic PERRL, EOMI, accommodation nl, no face palsy, no dysarthria CN's II-XI intact bilaterally Psychiatric A+Ox3, euthymic affect Discharge Data Allergies Allergy/AdvReac Type Severity Reaction Status Date / Time clavulanic acid Allergy Severe Hives Verified 02/05/19 16:48 [From Augmentin] Consultations 02/05/19 18:04 ED Decision to Admit Stat 02/06/19 09:08 Consult Orthopedic Surgery Routine Ordered Studies 02/05/19 16:36 US extremity nonvascular Stat 02/05/19 20:26 MR wrist LT wo/w con Stat Hospital Course (1) Cellulitis: Left upper extremity cellulitis Possible left wrist abscess -erythema and swelling of left hand to left wrist to distal third of radius and ulna; limited range of motion of left wrist on admission -symptoms initially started on 02/03/19 without trauma or animal bites for which patient went to hospital in [facility] where she received a dose of ceftrixone and Vancomycin and then discharged with Keflex, patient took Keflex and noted erythema and swelling to have worsened and came to [facility] on 02/05/19 -received ceftriaxone in the ED on 02/05/19; upgraded antibiotics to Zosyn and Vancomycin -give IV fluids, pain medicatons and bowel regimen to prevent constipation -admission Ultrasound: Within the palmar aspect of the wrist in the area of clinical concern there is a 1 cm irregularly marginated avascular hypoechoic lesion. In the proper clinical setting this could represent an abscess -orthopedic physician placed left upper extremity in splint on 02/06/19 -02/07/19 admission blood cultures have returned as no growth to date Orthopedics took the dressing off and almost complete resolution of erythema, have a small mass on the volar aspect of the left radial part of her wrist from a prior ganglion cyst incision, Orthopedics recommended to stop the Vancomycin and Zosyn and discharge to home on Doxycycline and Bactrim Doxycycline 100mg BID and Bactrim DS BID (both duration of 21 days) has been eprescribed to her pharmacy in [place] by orthopedic Dr. Ivy Patient has follow up appointment with orthopedic Dr. Ivy on Thursday02/09/19 for further evaluation of left wrist and possible surgery in the future Patient given orthopedic instructions Initial Tachycardia on admission -secondary to pain -was givem pain medications for left upper extremity during hospital stay -heart rate is controlled Mood disorder -continue home dose Effexor, Trazadone, ativan Tobacco use -declines nicotine substitutes at this time History of venous stasis -denies cardiac problems -but at home may take prn Lasix and potassium for leg swelling -no leg swelling at this time, hold diuretics Main Discharge Diagnosis Cellulitis of left upper extremity, abscess of left wrist Discharge to Home Doxycycline 100mg BID and Bactrim DS BID (both duration of 21 days) has been eprescribed to her pharmacy in [place] by orthopedic Dr. Ivy Patient has follow up appointment with orthopedic Dr. Ivy on Thursday02/09/19 for further evaluation of left wrist and possible surgery in the future Primary Care follow up 02/14/2019 1:30 PM Provider Mary Velazquez PA-C Department [facility] Instructions MEDICATIONS: * Resume previous medications unless instructed otherwise by your surgeon. * Always take pain medication on a full stomach or with food to avoid upset stomach. * Do not drink alcohol or drive while taking narcotics. * Ibuprofen or Tylenol may be taken if narcotic not needed. SPECIAL CARE INSTRUCTIONS: __ None _x_ Keep extremity elevated and iced x 48 hours; apply ice 20-30 minutes 8-10 times/day. May remove at night. __ Sling __24 hrs/day __ Remove at night __ Shoulder Immobilizer __ 24 hrs/day __ Remove at night __ Dressing _x_ Maintain until seen in office, may shower with plastic over site __ Remove dressings in 24-48 hours and then may shower __ Cover incisions with band-aids after showering __ Do not remove steri-strips Call physician if chills or temperature rises above 102 degrees or pain unrelieved by prescribed pain medications at . . Total Time Total Time Spent Total Time Spent (In Minutes): 40 minutes Total Time Includes: Examination of the Patient, Discharge Planning, Medication Reconciliation and Communication With Other Providers Discharge Plan Discharge Items Patient Disposition: Home - Self-Care Reason For Visit: LEFT UPPER EXTREMITY CELULITIS Discharge Diagnosis: Cellulitis of left upper extremity, abscess of left wrist Condition: Good Discharge Goals: Decrease discomfort Activity: Per 'Additional Instructions' section Non-emergency contact: Surgeon Call non-emergency contact if: your symptoms worsen Follow-up/Referrals: Jeremy Ivy DO [Surgeon] - Mary Velazquez PA-C [Primary Care Provider] - Diet: Regular Addtl Provider Instructions: Discharge to Home Doxycycline 100mg BID and Bactrim DS BID (both duration of 21 days) has been eprescribed to her pharmacy in [place] by orthopedic Dr. Ivy Patient has follow up appointment with orthopedic Dr. Ivy on Thursday02/09/19 for further evaluation of left wrist and possible surgery in the future Primary Care follow up 02/14/2019 1:30 PM Provider Mary Velazquez PA-C Department [facility] Instructions MEDICATIONS: * Resume previous medications unless instructed otherwise by your surgeon. * Always take pain medication on a full stomach or with food to avoid upset stomach. * Do not drink alcohol or drive while taking narcotics. * Ibuprofen or Tylenol may be taken if narcotic not needed. SPECIAL CARE INSTRUCTIONS: __ None _x_ Keep extremity elevated and iced x 48 hours; apply ice 20-30 minutes 8-10 times/day. May remove at night. __ Sling __24 hrs/day __ Remove at night __ Shoulder Immobilizer __ 24 hrs/day __ Remove at night __ Dressing _x_ Maintain until seen in office, may shower with plastic over site __ Remove dressings in 24-48 hours and then may shower __ Cover incisions with band-aids after showering __ Do not remove steri-strips Call physician if chills or temperature rises above 102 degrees or pain unrelieved by prescribed pain medications at . . Prescriptions: New doxycycline hyclate 100 mg capsule 100 mg PO BID 21 Days Qty: 42 RF: 0 sulfamethoxazole-trimethoprim [Bactrim DS] 800-160 mg tablet 1 tab PO BID 14 Days Qty: 4.76 RF: 0 Continued furosemide [Lasix] 40 mg Tablet 40 mg PO DAILY PRN (Reason: SWELLING) RF: 0 venlafaxine [Effexor XR] 37.5 mg Capsule,Extended Release 24hr 37.5 mg PO QPM RF: 0 potassium chloride 10 mEq Capsule, Extended Release 10 meq PO DAILY PRN (Reason: USE OF LASIX) RF: 0 trazodone 50 mg Tablet 50 mg PO HS PRN (Reason: Sleep) RF: 0 ranitidine HCl [Zantac] 300 mg Tablet 300 mg PO HS RF: 0 lorazepam 0.5 mg Tablet 0.5 mg PO DAILY PRN (Reason: Anxiety) RF: 0 tramadol 50 mg tablet 50 mg PO Q6H PRN (Reason: pain) Qty: 30 RF: 0 ketorolac 10 mg tablet 10 mg PO Q6 PRN (Reason: Pain) RF: 0 Discontinued cephalexin 500 mg capsule 500 mg PO TID RF: 0 diclofenac sodium 75 mg tablet,delayed release (DR/EC) 75 mg PO Q6H PRN (Reason: Pain) RF: 0 Stand-Alone Forms: [facility] Discharge Orders: Discharge Order (Routine); Ordered 02/07/19 Ordered By: Nathaniel Munguia Admission Data Admit Date/Time: 02/05/19 18:33 Attending Provider: Nathaniel Munguia Admit Provider: Nathaniel Munguia Primary Care Provider: Mary Velazquez Other Providers: Nathaniel Munguia ; Jeremy Ivy V Service: Medical
== END 2019-02-07 13:57 | disposition home or self-care (01) | DRG 603 ==
LOC: ED 16:17 → 4E 18:33